=== PATIENT | female | born 1975 | race Caucasian/White ===

== ENCOUNTER 2024-04-23 09:49 | Inpatient (IN) ==
--- NOTE | 2024-04-23 10:28 | Emergency Department Note ---
History of Present Illness General Chief complaint: Cough Stated complaint: COUGH, PNEUMONIA, WORSENING SYMPTOMS Time Seen by Provider: 04/23/24 10:16 History of Present Illness Maximum Pain Intensity: 10 This is a 48-year-old female who presents to the emergency department via private vehicle with complaints of "cough, pneumonia, left leg swelling, vomiting". Patient notes she was here 2 days ago and diagnosed with pneumonia. She was prescribed azithromycin and oral Augmentin. 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 She notes since discharge she has been vomiting, feeling unwell and now progressively experiencing swelling to the left lower extremity. She also note some chest pain today as well. Cough continues and is rather nonproductive in nature. No hemoptysis. Patient does have history she notes of heart failure. Per review of the EMR patient did have a negative bio fire panel performed 2 days ago on the . Laboratory studies reviewed from that day as well. D- dimer was elevated prompting a CT of the chest at that time which was negative for PE however pneumonia was noted. Patient is unable to tolerate oral antibiotics noting that she continues to vomit. Home Medications Medication Instructions Recorded Confirmed Type albuterol sulfate 90 mcg/actuation 2 inh inhalation Q6H PRN SHORT OF 01/22/22 04/23/24 History aerosol inhaler BREATH carvedilol 6.25 mg tablet 6.25 mg PO BID 01/22/22 04/23/24 History montelukast 10 mg tablet 10 mg PO HS 01/22/22 04/23/24 History ezetimibe 10 mg tablet 10 mg PO DAILY 12/15/23 04/23/24 History furosemide 20 mg tablet 20 mg PO DAILY 12/15/23 04/23/24 History losartan 25 mg tablet 25 mg PO DAILY 12/15/23 04/23/24 History magnesium oxide 500 mg PO DAILY 12/15/23 04/23/24 History rosuvastatin 10 mg tablet 10 mg PO DAILY 12/15/23 04/23/24 History amoxicillin 875 mg-potassium 1 tab PO BID 04/23/24 04/23/24 History clavulanate 125 mg tablet Allergies Allergy/AdvReac Type Severity Reaction Status Date / Time No Known Allergies Allergy Verified 12/15/23 16:05 Past Med/Surg History Problem List (Updated 04/23/24 @ 18:45 by Oswald Spaulding PA-C) Emesis (Acute) Edema of left lower extremity (Acute) Heart failure Lingular pneumonia (Acute) Cough (Acute) Medical History Dyslipidemia Mild persistent asthma Mitral regurgitation Peripartum cardiomyopathy Hypertension Abnormal mammogram of left breast NO BIOPSY PER FATHER Surgical History H/O colonoscopy History of bilateral tubal ligation Family History (Updated 04/23/24 @ 12:02 by Felicia Riley PA-C) Other Heart disease No family history of adverse response to anesthesia Social History Smoking Status: Never smoker Second Hand Exposure: No; Do You Dip or Chew Tobacco: No; Tobacco Cessation Education Requested by Patient: No Hx Alcohol Use: No Hx Substance Use: No Preferred Language: [place] Rn Iv Therapy Required: No Beliefs That Will Affect Care: Sikh Current Living Situation: Parent Other Information That Helps Us Care for You: No Feels Safe at Home: Yes Safety Concerns: Feels Safe At This Time Assistive Devices: None Review of Systems A total of 10 systems reviewed and were otherwise negative Physical Exam Vital Signs Vital Signs - 24 hr 04/23/24 10:06 04/23/24 10:40 Temperature 36.5 C Temperature Source Temporal Artery Scan Pulse Rate 99 H 93 H Pulse Rhythm Regular Respiratory Rate 20 24 Respiratory Effort / Characteristics Non-Labored Spontaneous Respiratory Depth Normal Respiratory Pattern Regular Blood Pressure 144/83 H Blood Pressure Mean 103 Pulse Oximetry 98 100 Oxygen Delivery Method Room Air Room Air Sepsis Recent Fever Within 48 Hours No Sepsis New/Unexplained Change in Mental Status N/A Sepsis Action Taken by Nursing No Action Required VITAL SIGNS - Vital signs and nursing notes were reviewed. Stable and afebrile. GENERAL - 48-year-old female appearing her stated age who is in no acute distress. Communicates well with provider and answers questions appropriately. SKIN - Without rashes. No meningeal or petechial rash HEAD - NC/AT. EYES - PERRL with EOMI bilaterally. Sclera anicteric. EARS - No deformities of external structures noted on gross examination bilaterally. NOSE - Midline and without cyanosis. No epistaxis or purulent drainage noted. MOUTH/OROPHARYNX - Without perioral cyanosis. NECK - Neck with FROM. No nuchal rigidity. LUNGS - Chest wall symmetric without accessory muscle use, intercostals retractions, or central cyanosis. Normal vesicular breath sounds CTA B/L. No wheezes, rales, or rhonchi appreciated. CARDIAC - RRR ABDOMEN - Abdominal contour normal without pulsations or visible masses. BS normoactive all four quadrants. No tenderness, palpable masses, hepatosplenomegaly, or ascites noted. EXTREMITIES - No clubbing or peripheral cyanosis. LLE edema noted circumferentially. Lower extremities are appropriately warm and well-perfused. +5/5 strength noted in UE/LE bilaterally. NEUROLOGIC - Cranial nerves II through XII grossly intact. PSYCH -alert, oriented and pleasant on exam Course Administered Medications Discontinued Medications Furosemide (Furosemide 40 Mg/4 Ml Vial) 40 mg IV ONE ONE Stop: 04/23/24 13:08 Last Admin: 04/23/24 13:13 Dose: 40 mg Documented By: HB Ceftriaxone Sodium (Rocephin) 2,000 mg in 50 mls @ 100 mls/hr IV NOW STA Stop: 04/23/24 11:56 Last Infusion: 04/23/24 12:10 Dose: Infused Documented By: Admin: 04/23/24 11:39 Dose: 100 mls/hr Documented By: HB Azithromycin 500 mg/ Sodium (Chloride) 255 mls @ 127.5 mls/hr IV NOW ONE Stop: 04/23/24 14:44 Last Infusion: 04/23/24 15:16 Dose: Infused Documented By: Admin: 04/23/24 13:15 Dose: 127.5 mls/hr Documented By: MYLA Medical Decision Making Laboratory Data 04/23/24 10:35 04/23/24 10:35 Lab Results 04/23/24 04/23/24 Range/Units 10:35 11:40 WBC 6.70 (4.8-10.8) K/ul RBC 4.01 L (4.20-5.40) M/uL Hgb 11.9 L (12.0-16.0) g/dl Hct 37.0 (37.0-47.0) % MCV 92.3 (80.0-100.0) fL MCH 29.7 (25.0-34.0) pg MCHC 32.2 (32.0-36.0) g/dL RDW Std Deviation 48.3 H (36.4-46.3) fL RDW Coeff of Homero 14.2 (11.5-14.5) % Plt Count 214 (130-400) K/uL MPV 10.3 (9.4-12.4) fL Immature Gran % (Auto) 0.3 % Neut % (Auto) 84.5 % Lymph % (Auto) 7.2 % Rice % (Auto) 5.2 % Eos % (Auto) 2.7 % Baso % (Auto) 0.1 % Neut # (Auto) 5.66 (1.40-6.50) K/uL Lymph # (Auto) 0.48 L (1.20-3.40) K/uL Rice # (Auto) 0.35 (0.11-0.59) K/uL Eos # (Auto) 0.18 (0.00-0.50) K/uL Baso # (Auto) 0.01 (0.00-0.20) K/uL Immature Gran # (Auto) 0.02 (0.01-0.20) K/uL PT Cancelled 10.6 INR Cancelled 1.0 APTT Cancelled 32 H PTT Ratio Cancelled 1.2 Sodium 138 (136-145) mmol/L Potassium 4.0 (3.5-5.1) mmol/L Chloride 106 (98-107) mmol/L Carbon Dioxide 26 (21-32) mmol/L Anion Gap 6 (3-11) BUN 13 (6-23) mg/dl Creatinine 0.68 (0.6-1.2) mg/dl Est Cr Clr Drug Dosing 112.7 ml/min eGFR 107.36 BUN/Creatinine Ratio 19.1 (10-20) Glucose 100 H (70-99(Fasting)) mg/dl Lactate 0.7 (0.4-2.0) mmol/L Calcium 8.9 (8.6-10.3) mg/dl Magnesium 1.7 (1.7-2.4) mg/dl Total Bilirubin 0.4 (0.2-1.0) mg/dl AST 20 (13-39) U/L ALT 11 (7-52) U/L Alkaline Phosphatase 62 (34-104) U/L Troponin I High Sens 5.8 (0-14) pg/ml B-Natriuretic Peptide 43 (0-100) pg/ml Total Protein 7.2 (6.0-8.3) gm/dl Albumin 4.4 (3.4-5.0) gm/dl Globulin 2.8 (2.5-4.0) gm/dl Albumin/Globulin Ratio 1.6 (0.9-2) Lipase 26 (11-82) U/L Procalcitonin 0.08 (0-0.5) ng/ml HCG, Qual Negative (Negative) Imaging Data Radiologist's Impression: Chest X-Ray 04/23/24 10:24 XR chest 1V portable CLINICAL HISTORY: cough, recent pneumonia diagnosis, vomiting COMPARISON STUDY: Chest radiograph and chest CT April 21, 2024. FINDINGS: No pneumothorax or pleural effusion is present. Low lung volumes are unchanged. Mild left lingular opacity has mildly increased. Cardiomediastinal silhouette is stable. There is no evidence for pulmonary edema. IMPRESSION: Mild increase in lingular opacity consistent with pneumonia. ACT 112: Negative or not required by law. Electronically signed by: Jaylen Root M.D. 04/23/2024 10:58 AM Venous Doppler Study 04/23/24 10:25 BILATERAL LOWER EXTREMITY VENOUS DOPPLER HISTORY: Acute pain and swelling of the lower legs L leg edema, more than R COMPARISON STUDY: None. FINDINGS: There is normal compressibility, flow, and augmentation within the bilateral lower extremity deep venous systems. 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 IMPRESSION: No DVT within the right or left lower extremity. ACT 112: Negative or not required by law. Electronically signed by: Kristian Cordova M.D. 04/23/2024 11:35 AM MDM Narrative Patient was seen and evaluated as above in room B11. Review was performed of nursing notes and vital signs. I did review pertinent previous visits and patient history. After obtaining a thorough history and physical examination the above work up was performed. Patient presents to us today with persistent vomiting and worsening of symptoms status post discharged 2 days ago with diagnosis of pneumonia. She notes she has not been able to successfully take the oral antibiotics as she notes continued vomiting. She states this developed after she was discharged 2 days ago. Review of visit from that day did reveal a CTA that revealed pneumonia. 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 She also notes now progressive swelling to the left lower extremity. EKG reveals normal sinus rhythm at a rate of 87 bpm. QTc 433. QRS 84. No ST elevation on this rhythm tracing. Chest x-ray was obtained and per my interpretation does reveal mild increase in the lingular opacity consistent with pneumonia. Doppler study negative for DVT. Noting the patient's worsening symptoms despite outpatient antibiotics and now with vomiting we will proceed with further evaluation and management in the inpatient setting. Case discussed with the hospitalist service. Labs reveal no leukocytosis. Minor anemia noted with hemoglobin of 11.9. No emergent metabolic disturbance. No hyperglycemia. Troponin and BNP within normal range. Lipase and procalcitonin are within normal range. hCG negative. Urinalysis does not suggest infection. Please refer to further documentation regarding her stay. GCS: 15 In the evaluation and treatment of this patient the following differential diagnoses were entertained: Worsening pneumonia, pleural effusion, heart failure, DE, PE, among others Impression & Plan Cough, Lingular pneumonia, Edema of left lower extremity, Emesis Discharge Plan Visit Data Chief Complaint: Cough Stated Complaint: COUGH, PNEUMONIA, WORSENING SYMPTOMS ED Provider: Jose Chávez ED Midlevel Provider: Oswald Spaulding Discharge Problem: Cough, Lingular pneumonia, Edema of left lower extremity, Emesis Patient Disposition: Admitted As Inpatient Condition: Good Discharge Instructions Interventions: ED Discharge Assessment Last Done: 04/23/24 14:28
--- NOTE | 2024-04-23 11:00 | XRay Report ---
XR chest 1V portable CLINICAL HISTORY: cough, recent pneumonia diagnosis, vomiting COMPARISON STUDY: Chest radiograph and chest CT April 21, 2024. FINDINGS: No pneumothorax or pleural effusion is present. Low lung volumes are unchanged. Mild left l ingular opacity has mildly increased. Cardiomediastinal silhouette is stable. There is no evidence fo r pulmonary edema. IMPRESSION: Mild increase in lingular opacity consistent with pneumonia. ACT 112: Negative or not required by law. Electronically signed by: Jaylen Root M.D. 04/23/2024 10:58 AM
[2024-04-23 11:03] LABS: Basophils # (auto) 0.01 K/uL (0.00-0.20); Basophils % (auto) 0.1 %; Eosinophils # (auto) 0.18 K/uL (0.00-0.50); Eosinophils % (auto) 2.7 %; Hemoglobin 11.9 g/dl (12.0-16.0); Immature Granulocytes # (auto) 0.02 K/uL (0.01-0.20); Immature Granulocytes % (auto) 0.3 %; Lymphocytes # (auto) 0.48 K/uL (1.20-3.40); Lymphocytes % (auto) 7.2 %; Mean Corpuscular Hemoglobin 29.7 pg (25.0-34.0); Mean Corpuscular Hgb Conc 32.2 g/dL (32.0-36.0); Mean Corpuscular Volume 92.3 fL (80.0-100.0); Mean Platelet Volume 10.3 fL (9.4-12.4); Monocytes # (auto) 0.35 K/uL (0.11-0.59); Monocytes % (auto) 5.2 %; Neutrophils # (auto) 5.66 K/uL (1.40-6.50); Neutrophils % (auto) 84.5 %; Platelet Count 214 K/uL (130-400); RDW Coefficient of Variation 14.2 % (11.5-14.5); RDW Standard Deviation 48.3 fL (36.4-46.3); Red Blood Count 4.01 M/uL (4.20-5.40)
[2024-04-23 11:15] LABS: Pregnancy Test, Serum Negative (Negative)
[2024-04-23 11:19] LABS: Albumin Globulin Ratio 1.6 (0.9-2); Albumin Level 4.4 gm/dl (3.4-5.0); BUN Creatinine Ratio 19.1 (10-20); Bilirubin,Total 0.4 mg/dl (0.2-1.0); Calcium 8.9 mg/dl (8.6-10.3); Creatinine Clr Calc Pharmacy 112.7 ml/min; Globulin 2.8 gm/dl (2.5-4.0); Magnesium 1.7 mg/dl (1.7-2.4); Total Protein 7.2 gm/dl (6.0-8.3)
[2024-04-23 11:25] LABS: Troponin I High Sensitivity 5.8 pg/ml (0-14)
--- NOTE | 2024-04-23 11:36 | Ultrasound Report ---
BILATERAL LOWER EXTREMITY VENOUS DOPPLER HISTORY: Acute pain and swelling of the lower legs L leg edema, more than R COMPARISON STUDY: None. FINDINGS: There is normal compressibility, flow, and augmentation within the bilateral lower extremit y deep venous systems. 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 IMPRESSION: No DVT within the right or left lower extremity. ACT 112: Negative or not required by law. Electronically signed by: Kristian Cordova M.D. 04/23/2024 11:35 AM
[2024-04-23] MEDS: cefTRIAXone SODIUM 2,000 MG/50 ML BAG IV STA (11:39)
--- NOTE | 2024-04-23 12:06 | History & Physical Report ---
Date of Service April 23, 2024 Assessment & Plan (1) Lingular pneumonia: Plan: This is a 48 y/o female with history of peripartum cardiomyopathy, HTN, dyslipidemia, and asthma who presents to the ED today with worsening cough and vomiting. Diagnosed in the ED with pneumonia two days ago but has been unable to tolerate the Augmentin due to vomiting and has not started the azithromycin. She feels like her cough is now worsening and she is unable to tolerate any oral intake so she came back to the ED for evaluation and was referred for admission for IV antibiotics. She was also noted to have LE edema and has a history of peripartum cardiomyopathy but most recent ECHO with normal EF. - Admit to med telemetry - IV azithromycin and ceftriaxone for antibiotic coverage - Incentive spirometry, flutter valve - Labs in the AM - CBC, BMP (2) Heart failure: Plan: Increased peripheral edema on exam, reports worsening LUCAS IV furosemide 40 mg x 1 today then daily Update ECHO - will consider cardio consult pending results and response to diuresis (3) Hypertension: Plan: Chronic, stable Continue outpatient meds (4) Dyslipidemia: Plan: Chronic, stable Continue statin (5) Mild persistent asthma: Plan: Chronic, stable Continue inhalers Plan Pt seen and reviewed with collaborating physician, Dr. Babb. Plan of care discussed and as outlined above. Code status: Full code DVT prophylaxis: Lovenox Admit to med telemetry Rick Riley PA-C History of Present Illness Chief Complaint: worsening cough Primary Care Provider: Chuyita Ware MD This is a 48 y/o female with history of peripartum cardiomyopathy, HTN, dyslipidemia, and asthma who presents to the ED today with worsening cough and vomiting. Pt was seen in the ED two days ago and diagnosed with lingular pneumonia. Discharged on Augmentin and azithromycin but reports she has only been taking the Augmentin, has not picked up with azithromycin yet as the pharmacy stated that they never received a script for it. She started with a non-productive cough ten days ago, which has persisted and now seems to be worsening. History of asthma but this has been well-controlled for the last four years. Reports taking her maintenance inhaler, using albuterol prn. Since being discharged from the ED, she has been unable to tolerate oral intake specifically her antibiotic. Yesterday morning, she reportedly developed vomiting, diarrhea, and abdominal pain, which she attributes to possible food poisoning. Reports at least ten episodes of vomiting today. No blood in the vomit. Ongoing diarrhea today but no blood. She also c/o central burning chest pain that may or may not be associated with the cough. Unclear how long this has been occurring. She also notes ongoing issues with LE edema that preceded the cough - thinks started about three weeks ago but worse over the last few days. Having dyspnea both at rest and with exertion for the last several days - seems to be associated with the cough. She is prescribed furosemide 20 mg daily and states she's taking this as prescribed. Her father provided parts of the history today. ECHO 05/29 - EF 55% Allergies Allergy/AdvReac Type Severity Reaction Status Date / Time No Known Allergies Allergy Verified 12/15/23 16:05 Home Medications Medication Instructions Recorded Confirmed Type albuterol sulfate 90 mcg/actuation 2 inh inhalation Q6H PRN SHORT OF 01/22/22 04/23/24 History aerosol inhaler BREATH carvedilol 6.25 mg tablet 6.25 mg PO BID 01/22/22 04/23/24 History montelukast 10 mg tablet 10 mg PO HS 01/22/22 04/23/24 History ezetimibe 10 mg tablet 10 mg PO DAILY 12/15/23 04/23/24 History furosemide 20 mg tablet 20 mg PO DAILY 12/15/23 04/23/24 History losartan 25 mg tablet 25 mg PO DAILY 12/15/23 04/23/24 History magnesium oxide 500 mg PO DAILY 12/15/23 04/23/24 History rosuvastatin 10 mg tablet 10 mg PO DAILY 12/15/23 04/23/24 History amoxicillin 875 mg-potassium 1 tab PO BID 04/23/24 04/23/24 History clavulanate 125 mg tablet Past Med/Surg History Problem List (Updated 04/23/24 @ 13:24 by Felicia Riley PA-C) Heart failure Lingular pneumonia (Acute) Cough (Acute) Medical History Dyslipidemia Mild persistent asthma Mitral regurgitation Peripartum cardiomyopathy Hypertension Abnormal mammogram of left breast NO BIOPSY PER FATHER Surgical History H/O colonoscopy History of bilateral tubal ligation Family History (Updated 04/23/24 @ 12:02 by Felicia Riley PA-C) Other Heart disease No family history of adverse response to anesthesia Social History Smoking Status: Never smoker Second Hand Exposure: No; Do You Dip or Chew Tobacco: No; Tobacco Cessation Education Requested by Patient: No Hx Alcohol Use: No Hx Substance Use: No Preferred Language: Polish Fisheries Inspector Required: No Beliefs That Will Affect Care: Pentecostalism Current Living Situation: Parent Other Information That Helps Us Care for You: No Feels Safe at Home: Yes Safety Concerns: Feels Safe At This Time Assistive Devices: None Review of Systems Review of Systems: All systems reviewed & are unremarkable except as noted in Subjective Physical Exam Physical Exam: Please see physician note for details of the physical exam. Results & Data Results & Data Vital Signs (Past 12 Hours) Vital Signs Temp Pulse Resp BP Pulse Ox O2 Del Method 04/23/24 10:40 93 H 24 100 Room Air 04/23/24 10:06 36.5 C 99 H 20 144/83 H 98 Room Air Laboratory Results Lab Results 04/23/24 Range/Units 10:35 WBC 6.70 (4.8-10.8) K/ul RBC 4.01 L (4.20-5.40) M/uL Hgb 11.9 L (12.0-16.0) g/dl Hct 37.0 (37.0-47.0) % MCV 92.3 (80.0-100.0) fL MCH 29.7 (25.0-34.0) pg MCHC 32.2 (32.0-36.0) g/dL RDW Std Deviation 48.3 H (36.4-46.3) fL RDW Coeff of Homero 14.2 (11.5-14.5) % Plt Count 214 (130-400) K/uL MPV 10.3 (9.4-12.4) fL Immature Gran % (Auto) 0.3 % Neut % (Auto) 84.5 % Lymph % (Auto) 7.2 % Rains % (Auto) 5.2 % Eos % (Auto) 2.7 % Baso % (Auto) 0.1 % Neut # (Auto) 5.66 (1.40-6.50) K/uL Lymph # (Auto) 0.48 L (1.20-3.40) K/uL Rains # (Auto) 0.35 (0.11-0.59) K/uL Eos # (Auto) 0.18 (0.00-0.50) K/uL Baso # (Auto) 0.01 (0.00-0.20) K/uL Immature Gran # (Auto) 0.02 (0.01-0.20) K/uL PT Cancelled INR Cancelled APTT Cancelled PTT Ratio Cancelled Sodium 138 (136-145) mmol/L Potassium 4.0 (3.5-5.1) mmol/L Chloride 106 (98-107) mmol/L Carbon Dioxide 26 (21-32) mmol/L Anion Gap 6 (3-11) BUN 13 (6-23) mg/dl Creatinine 0.68 (0.6-1.2) mg/dl Est Cr Clr Drug Dosing 112.7 ml/min eGFR 107.36 BUN/Creatinine Ratio 19.1 (10-20) Glucose 100 H (70-99(Fasting)) mg/dl Lactate 0.7 (0.4-2.0) mmol/L Calcium 8.9 (8.6-10.3) mg/dl Magnesium 1.7 (1.7-2.4) mg/dl Total Bilirubin 0.4 (0.2-1.0) mg/dl AST 20 (13-39) U/L ALT 11 (7-52) U/L Alkaline Phosphatase 62 (34-104) U/L Troponin I High Sens 5.8 (0-14) pg/ml B-Natriuretic Peptide 43 (0-100) pg/ml Total Protein 7.2 (6.0-8.3) gm/dl Albumin 4.4 (3.4-5.0) gm/dl Globulin 2.8 (2.5-4.0) gm/dl Albumin/Globulin Ratio 1.6 (0.9-2) Lipase 26 (11-82) U/L Procalcitonin 0.08 (0-0.5) ng/ml HCG, Qual Negative (Negative) Diagnostic Findings Chest X-Ray 04/23/24 10:24 XR chest 1V portable CLINICAL HISTORY: cough, recent pneumonia diagnosis, vomiting COMPARISON STUDY: Chest radiograph and chest CT April 21, 2024. FINDINGS: No pneumothorax or pleural effusion is present. Low lung volumes are unchanged. Mild left lingular opacity has mildly increased. Cardiomediastinal silhouette is stable. There is no evidence for pulmonary edema. IMPRESSION: Mild increase in lingular opacity consistent with pneumonia. ACT 112: Negative or not required by law. Electronically signed by: Jaylen Root M.D. 04/23/2024 10:58 AM Venous Doppler Study 04/23/24 10:25 BILATERAL LOWER EXTREMITY VENOUS DOPPLER HISTORY: Acute pain and swelling of the lower legs L leg edema, more than R COMPARISON STUDY: None. FINDINGS: There is normal compressibility, flow, and augmentation within the bilateral lower extremity deep venous systems. 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 IMPRESSION: No DVT within the right or left lower extremity. ACT 112: Negative or not required by law. Electronically signed by: Kristian Cordova M.D. 04/23/2024 11:35 AM Medications Administered Discontinued Medications Ceftriaxone Sodium (Rocephin) 2,000 mg in 50 mls @ 100 mls/hr IV NOW STA Stop: 04/23/24 11:56 Last Admin: 04/23/24 11:39 Dose: 100 mls/hr Documented By: Supervising Physician Co-Signing Physician Notes Patient seen and examined Reports dry cough for 10 days, Lower extremity swelling for over 3 weeks. Also reports worsening SOB Was seen in ER 2 days ago and prescribed Augmentin and zithromax but only got the Augmentin Reports intractable nausea, vomiting, diarrhea, epigastric pain with vomiting since General: Obese, not in distress Eyes: PERRL, conjunctivae normal, not pale, anicteric sclerae, EOM intact bilaterally ENMT: External ear and nose normal, oropharynx normal Respiratory: Normal respiratory effort, no respiratory distress, diminished breath sounds Cardiovascular: RRR S1 S2 Gastrointestinal (Abdomen): Abdomen is not distended, soft, non-tender to palpation, no guarding, no palpable hepatosplenomegaly, normal bowel sounds Musculoskeletal: +mild pedal edema Neurologic: Alert and oriented x 3, No focal weakness, sensation grossly intact Psychiatric: Euthymic affect Lab is unremarkable CXR shows pneumonia LE doppler negative for DVT Since patient did not tolerate po abx at home, will do IV ceftriaxone and azithromycin Continue IV lasix while inpatient Get TTE I spent a total of 45 minutes coordinating, documenting and providing care for this patient excluding time spent in performance of separately billed services (2) Heart failure Heart failure chronicity: unspecified Heart failure type: unspecified Qualified Code(s): I50.9 - Heart failure, unspecified (3) Hypertension Hypertension type: primary hypertension Qualified Code(s): I10 - Essential (primary) hypertension (5) Mild persistent asthma Asthma complication type: unspecified Qualified Code(s): J45.30 - Mild persistent asthma, uncomplicated
[2024-04-23] MEDS ORDERED: AZITHROMYCIN 500 MG VIAL IV ONE (12:29)
[2024-04-23 12:34] LABS: Partial Thromboplastin Ratio 1.2; Partial Thromboplastin Time 32 Seconds (21-31); Prothrombin Time 10.6 Seconds (9.0-12.0)
[2024-04-23] MEDS: FUROSEMIDE 40 MG/4 ML VIAL IV ONE (13:13)
[2024-04-23] MEDS: AZITHROMYCIN 500 MG in SODIUM CHLORIDE 0.9% 250 ML IV ONE (13:15)
[2024-04-23] MEDS ORDERED: ACETAMINOPHEN 325 MG TAB PO PRN (14:48)
[2024-04-23 17:52] LABS: Appearance Urine Clear (Clear); Bacteria Urine Automated None Seen (None Seen); Bilirubin Urine Negative (Negative); Blood Urine Trace (Negative); Cast Urine Automated 0-2 /lpf (0-2); Color Urine Yellow; Epithelial Cell Urine Auto 0-2 /hpf (0-2); Glucose Urine UA Negative (Negative); Ketones Urine Negative (Negative); Leukocyte Esterase Urine Negative (Negative); Nitrite Urine Negative (Negative); Protein Urine Negative (Negative); RBC Urine Automated 0-2 /hpf (0-2); Specific Gravity Urine 1.009 (1.000-1.030); Urobilinogen Urine Negative (Negative); WBC Urine Automated 0-5 /hpf (0-5)
[2024-04-23] MEDS ORDERED: ALBUTEROL HFA 8 GM INHALER INH PRN (20:17)
--- NOTE | 2024-04-23 20:41 | Electrocardiogram Report ---
Test Reason : Blood Pressure : */* mmHG Vent. Rate : 87 BPM Atrial Rate : 87 BPM P-R Int : 132 ms QRS Dur : 84 ms QT Int : 360 ms P-R-T Axes : 46 4 34 degrees QTcB Int : 433 ms Normal sinus rhythm Normal ECG When compared with ECG of 21-Apr-2024 15:56, No significant change was found Confirmed by Dk Paul ([id number]) on 04/23/2024 8:41:23 PM Referred By: REFERRED SELF Confirmed By: Dk Paul
[2024-04-23] MEDS: carvediloL 6.25 MG TAB PO SCH (20:52)
[2024-04-23] MEDS: MONTELUKAST SODIUM 10 MG TABLET PO SCH (20:52)
[2024-04-24] MEDS: BENZONATATE 100 MG CAPSULE PO PRN (00:07)
[2024-04-24 04:43] LABS: Eosinophils # (auto) 0.05 K/uL (0.00-0.50); Eosinophils % (auto) 1.3 %; Hematocrit (blood only) 34.3 % (37.0-47.0); Immature Granulocytes # (auto) 0.01 K/uL (0.01-0.20); Immature Granulocytes % (auto) 0.3 %; Lymphocytes # (auto) 0.76 K/uL (1.20-3.40); Lymphocytes % (auto) 19.9 %; Mean Corpuscular Hemoglobin 29.5 pg (25.0-34.0); Mean Corpuscular Hgb Conc 32.1 g/dL (32.0-36.0); Mean Platelet Volume 10.1 fL (9.4-12.4); Monocytes # (auto) 0.42 K/uL (0.11-0.59); Neutrophils # (auto) 2.57 K/uL (1.40-6.50); Neutrophils % (auto) 67.5 %; Platelet Count 189 K/uL (130-400); RDW Coefficient of Variation 14.4 % (11.5-14.5); RDW Standard Deviation 48.5 fL (36.4-46.3); Red Blood Count 3.73 M/uL (4.20-5.40); White Blood Count 3.81 K/ul (4.8-10.8)
[2024-04-24 05:10] LABS: BUN Creatinine Ratio 12.7 (10-20); Calcium 8.4 mg/dl (8.6-10.3); Creatinine Clr Calc Pharmacy 102.3 ml/min; Magnesium 1.6 mg/dl (1.7-2.4); Potassium 3.4 mmol/L (3.5-5.1)
[2024-04-24] MEDS: ENOXAPARIN INJ 40 MG/0.4 ML SYR SQ SCH (08:15)
[2024-04-24] MEDS: LOSARTAN POTASSIUM 25 MG TAB PO SCH (08:16)
[2024-04-24] MEDS: ROSUVASTATIN CALCIUM 10 MG TAB PO SCH (08:16)
[2024-04-24] MEDS: MAGNESIUM OXIDE 400 MG TAB PO SCH (08:16)
[2024-04-24] MEDS: EZETIMIBE 10 MG TAB PO SCH (08:16)
[2024-04-24] MEDS: FUROSEMIDE 20 MG TAB PO SCH (08:17)
[2024-04-24] MEDS: FUROSEMIDE 40 MG/4 ML VIAL IV SCH (08:21)
--- NOTE | 2024-04-24 08:45 | Hospitalist Progress Note ---
Date of Service April 24, 2024 Assessment & Plan (1) Lingular pneumonia: Plan: This is most likely atypical pneumonia considering initial GI presentation, patient was given ceftriaxone and azithromycin, considering absence of fever, hypoxia or significant consolidation, her young age also into consideration, I would transition to oral Zithromax today and observe over the next 24 hours to see if patient can be possibly discharged home to finish the treatment at home. (2) Hypertension: Plan: Blood pressure stable, continue with carvedilol, losartan. (3) Dyslipidemia: Plan: Continue with Zetia and Crestor. (4) Mild persistent asthma: Plan: Continue with home dose of Singulair and use nebulizer treatment as needed. Plan Observe for another day for tolerance of p.o. antibiotic, if she remains stable over the next 24 hours may consider discharging her home to finish the course of azithromycin at home. Her echocardiogram showed normal ejection fraction and so I am not concerned. Admission and Anticipated Discharge Date Admission Date: April 23, 2024 Subjective Patient is a 48-year-old female with history of peripartum cardiomyopathy, hypertension, dyslipidemia and asthma who was admitted because of worsening cough despite taking oral medications and antibiotic as outpatient. She does not remember the name of antibiotic that she was on however the H&P mentioned Augmentin. Here patient was not found to be hypoxic, no leukocytosis, afebrile, chest x-ray was reviewed by myself and the report was reviewed which showed lingular pneumonia. Patient was kept on Zithromax, overall I think this is probably an atypical pneumonia considering the predominance of presenting GI symptoms. Her nausea and vomiting has resolved.Patient was seen and Patient was seen and examined, clinically stable, lung examination is unremarkable, she is not in any distress and is on room air, will transition to p.o. azithromycin, watch for another day and may consider discharging her home tomorrow. In the meanwhile echocardiogram was done here which showed normal ejection fraction. Continue with home medications. Physical Exam Physical Exam: VITALS: Reviewed. WEIGHT/BMI reviewed. GEN: Healthy appearing, well-developed, NAD. CV: RRR, no m/r/g. LUNGS: CTAB, no w/r/c. ABD: Soft, NT/ND, NBS, no masses or organomegaly. Results & Data Results & Data Vital Signs (Past 12 Hours) Vital Signs Temp Pulse Pulse Resp BP BP Pulse Ox 04/24/24 08:10 04/24/24 08:02 36.4 C L 79 18 137/83 96 04/24/24 03:42 36.8 C 78 18 127/72 95 04/23/24 23:48 36.8 C 91 H 18 144/78 H 98 04/23/24 21:49 95 H O2 Del Method 04/24/24 08:10 Room Air 04/24/24 08:02 Room Air 04/24/24 03:42 Room Air 04/23/24 23:48 Room Air 04/23/24 21:49 Laboratory Results Laboratory Results - last 24 hr 04/23/24 04/23/24 04/23/24 10:35 11:40 17:35 WBC 6.70 RBC 4.01 L Hgb 11.9 L Hct 37.0 MCV 92.3 MCH 29.7 MCHC 32.2 RDW Std Deviation 48.3 H RDW Coeff of Homero 14.2 Plt Count 214 MPV 10.3 Immature Gran % (Auto) 0.3 Neut % (Auto) 84.5 Lymph % (Auto) 7.2 [place] % (Auto) 5.2 Eos % (Auto) 2.7 Baso % (Auto) 0.1 Neut # (Auto) 5.66 Lymph # (Auto) 0.48 L [place] # (Auto) 0.35 Eos # (Auto) 0.18 Baso # (Auto) 0.01 Immature Gran # (Auto) 0.02 PT Cancelled 10.6 INR Cancelled 1.0 APTT Cancelled 32 H PTT Ratio Cancelled 1.2 Sodium 138 Potassium 4.0 Chloride 106 Carbon Dioxide 26 Anion Gap 6 BUN 13 Creatinine 0.68 Est Cr Clr Drug Dosing 112.7 eGFR 107.36 BUN/Creatinine Ratio 19.1 Glucose 100 H Lactate 0.7 Calcium 8.9 Magnesium 1.7 Total Bilirubin 0.4 AST 20 ALT 11 Alkaline Phosphatase 62 Troponin I High Sens 5.8 B-Natriuretic Peptide 43 Total Protein 7.2 Albumin 4.4 Globulin 2.8 Albumin/Globulin Ratio 1.6 Lipase 26 Procalcitonin 0.08 HCG, Qual Negative Urine Color Yellow Urine Appearance Clear Urine pH 5.0 Ur Specific [place] 1.009 Urine Protein Negative Urine Glucose (UA) Negative Urine Ketones Negative Urine Blood Trace H Urine Nitrite Negative Urine Bilirubin Negative Urine Urobilinogen Negative Ur Leukocyte Esterase Negative Urine WBC (Auto) 0-5 Urine RBC (Auto) 0-2 U Hyaline Cast (Auto) 0-2 U Epithel Cells (Auto) 0-2 Urine Bacteria (Auto) None Seen 04/24/24 04:03 WBC 3.81 L RBC 3.73 L Hgb 11.0 L Hct 34.3 L MCV 92.0 MCH 29.5 MCHC 32.1 RDW Std Deviation 48.5 H RDW Coeff of Homero 14.4 Plt Count 189 MPV 10.1 Immature Gran % (Auto) 0.3 Neut % (Auto) 67.5 Lymph % (Auto) 19.9 [place] % (Auto) 11.0 Eos % (Auto) 1.3 Baso % (Auto) 0.0 Neut # (Auto) 2.57 Lymph # (Auto) 0.76 L [place] # (Auto) 0.42 Eos # (Auto) 0.05 Baso # (Auto) 0.00 Immature Gran # (Auto) 0.01 PT INR APTT PTT Ratio Sodium 138 Potassium 3.4 L Chloride 103 Carbon Dioxide 26 Anion Gap 9 BUN 9 Creatinine 0.71 Est Cr Clr Drug Dosing 102.3 eGFR 104.82 BUN/Creatinine Ratio 12.7 Glucose 96 Lactate Calcium 8.4 L Magnesium 1.6 L Total Bilirubin AST ALT Alkaline Phosphatase Troponin I High Sens B-Natriuretic Peptide Total Protein Albumin Globulin Albumin/Globulin Ratio Lipase Procalcitonin HCG, Qual Urine Color Urine Appearance Urine pH Ur Specific [place] Urine Protein Urine Glucose (UA) Urine Ketones Urine Blood Urine Nitrite Urine Bilirubin Urine Urobilinogen Ur Leukocyte Esterase Urine WBC (Auto) Urine RBC (Auto) U Hyaline Cast (Auto) U Epithel Cells (Auto) Urine Bacteria (Auto) Diagnostic Findings Chest X-Ray 04/23/24 10:24 XR chest 1V portable CLINICAL HISTORY: cough, recent pneumonia diagnosis, vomiting COMPARISON STUDY: Chest radiograph and chest CT April 21, 2024. FINDINGS: No pneumothorax or pleural effusion is present. Low lung volumes are unchanged. Mild left lingular opacity has mildly increased. Cardiomediastinal silhouette is stable. There is no evidence for pulmonary edema. IMPRESSION: Mild increase in lingular opacity consistent with pneumonia. ACT 112: Negative or not required by law. Electronically signed by: Jaylen Root M.D. 04/23/2024 10:58 AM Venous Doppler Study 04/23/24 10:25 BILATERAL LOWER EXTREMITY VENOUS DOPPLER HISTORY: Acute pain and swelling of the lower legs L leg edema, more than R COMPARISON STUDY: None. FINDINGS: There is normal compressibility, flow, and augmentation within the bilateral lower extremity deep venous systems. 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 IMPRESSION: No DVT within the right or left lower extremity. ACT 112: Negative or not required by law. Electronically signed by: Kristian Cordova M.D. 04/23/2024 11:35 AM Medications Administered Current Inpatient Medications Acetaminophen (Acetaminophen 325 Mg Tab) 650 mg PO Q4H PRN PRN Reason: Pain or Fever Stop: 05/23/24 14:47 Albuterol (Albuterol Hfa 8 Gm Inhaler) 2 puffs INH Q6H PRN PRN Reason: SHORT OF BREATH Stop: 05/23/24 20:16 Azithromycin (Azithromycin 250 Mg Tab) 500 mg PO QAM ON LICENSE OF [facility] Stop: 04/29/24 08:59 Benzonatate (Benzonatate 100 Mg Capsule) 100 mg PO TID PRN PRN Reason: Cough Stop: 05/23/24 23:50 Last Admin: 04/24/24 00:07 Dose: 100 mg Carvedilol (Carvedilol 6.25 Mg Tab) 6.25 mg PO BID MATEO Stop: 05/23/24 20:59 Last Admin: 04/24/24 08:16 Dose: 6.25 mg Ezetimibe (Ezetimibe 10 Mg Tab) 10 mg PO DAILY ON LICENSE OF [facility] Stop: 05/24/24 08:59 Last Admin: 04/24/24 08:16 Dose: 10 mg Enoxaparin Sodium (Enoxaparin Inj 40 Mg/0.4 Ml Syr) 40 mg SQ QAM ON LICENSE OF [facility] Stop: 05/24/24 08:59 Last Admin: 04/24/24 08:21 Dose: Not Given Furosemide (Furosemide 40 Mg/4 Ml Vial) 40 mg IV DAILY MATEO Stop: 05/24/24 08:59 Last Admin: 04/24/24 08:21 Dose: 40 mg Furosemide (Furosemide 20 Mg Tab) 20 mg PO DAILY MATEO Stop: 05/24/24 08:59 Last Admin: 04/24/24 08:17 Dose: 20 mg Losartan Potassium (Losartan Potassium 25 Mg Tab) 25 mg PO DAILY ON LICENSE OF [facility] Stop: 05/24/24 08:59 Last Admin: 04/24/24 08:16 Dose: 25 mg Magnesium Oxide (Magnesium Oxide 400 Mg Tab) 400 mg PO DAILY MATEO Stop: 05/24/24 08:59 Last Admin: 04/24/24 08:16 Dose: 400 mg Montelukast Sodium (Montelukast Sodium 10 Mg Tablet) 10 mg PO HS ON LICENSE OF [facility] Stop: 05/23/24 20:59 Last Admin: 04/23/24 20:52 Dose: 10 mg Rosuvastatin Calcium (Rosuvastatin Calcium 10 Mg Tab) 10 mg PO DAILY ON LICENSE OF [facility] Stop: 05/24/24 08:59 Last Admin: 04/24/24 08:16 Dose: 10 mg (2) Hypertension Hypertension type: primary hypertension Qualified Code(s): I10 - Essential (primary) hypertension (4) Mild persistent asthma Asthma complication type: unspecified Qualified Code(s): J45.30 - Mild persistent asthma, uncomplicated
[2024-04-24] MEDS ORDERED: AZITHROMYCIN 500 MG VIAL IV SCH (09:00)
[2024-04-24] MEDS: AZITHROMYCIN 250 MG TAB PO SCH (10:09)
[2024-04-24] MEDS ORDERED: AZITHROMYCIN 500 MG in SODIUM CHLORIDE 0.9% 250 ML IV SCH (12:00)
[2024-04-24] MEDS ORDERED: cefTRIAXone SODIUM 2,000 MG/50 ML BAG IV SCH (12:00)
[2024-04-24] MEDS: PNEUMOCOCCAL VACCINE (PCV20) 20-VAL CONJ-DIP CRM/PF 0.5 ML SYR IM ONE (16:58)
--- NOTE | 2024-04-24 21:32 | Electrocardiogram Report ---
Test Reason : Blood Pressure : */* mmHG Vent. Rate : 96 BPM Atrial Rate : 96 BPM P-R Int : 132 ms QRS Dur : 86 ms QT Int : 362 ms P-R-T Axes : * 158 140 degrees QTcB Int : 457 ms Normal sinus rhythm Right axis deviation Limb lead reversal Abnormal ECG When compared with ECG of 23-Apr-2024 10:30, QRS axis Shifted right Limb lead reversal is now present Confirmed by Dk Paul ([id number]) on 04/24/2024 9:32:13 PM Referred By: REFERRED SELF Confirmed By: Dk Paul
[2024-04-25 07:44] VITALS: RESP 16; TEMP 98.4; O2SAT 94
--- NOTE | 2024-04-25 09:02 | Discharge Summary ---
Discharge Summary Date of Service April 25, 2024 Principal Dx & Hospital Course #1 = Principal Diagnosis (1) Lingular pneumonia: (2) Hypertension: (3) Dyslipidemia: (4) Mild persistent asthma: Continue with home dose of Singulair and use nebulizer treatment as needed. Notes For Next Care Provider Medication Changes From Visit Azithromycin 500 mg daily for 5 days K. Dur 40 mEq daily for 7 days Magnesium oxide 400 mg daily for 7 days Tessalon 100 mg twice daily for 7 days Admission HPI Per Admitting Provider Patient is a 48-year-old female with history of peripartum cardiomyopathy, hypertension, dyslipidemia and asthma who was admitted because of worsening cough despite taking oral medications and antibiotic as outpatient. She does not remember the name of antibiotic that she was on however the H&P mentioned Augmentin. Here patient was not found to be hypoxic, no leukocytosis, afebrile, chest x-ray was reviewed by myself and the report was reviewed which showed lingular pneumonia. Patient was kept on Zithromax, overall I think this is probably an atypical pneumonia considering the predominance of presenting GI symptoms. Her nausea and vomiting has resolved.he responded to treatment, seen and examined today on the day that we were thinking that she might be able to go home, she is overall doing well, denies having any nausea vomiting or cough. 5 more days of Zithromax will be given and noticed that patient had some low magnesium and potassium so I decided to give her a course of 7-day supplement of potassium chloride and magnesium oxide. Discharge Exam VITALS: Reviewed. WEIGHT/BMI reviewed. GEN: Healthy appearing, well-developed, NAD. CV: RRR, no m/r/g. LUNGS: CTAB, no w/r/c. ABD: Soft, NT/ND, NBS, no masses or organomegaly. Updated Medication List Medication Instructions Recorded Confirmed Type albuterol sulfate 90 mcg/actuation 2 inh inhalation Q6H PRN SHORT OF 01/22/22 04/23/24 History aerosol inhaler BREATH carvedilol 6.25 mg tablet 6.25 mg PO BID 01/22/22 04/23/24 History montelukast 10 mg tablet 10 mg PO HS 01/22/22 04/23/24 History ezetimibe 10 mg tablet 10 mg PO DAILY 12/15/23 04/23/24 History furosemide 20 mg tablet 20 mg PO DAILY 12/15/23 04/23/24 History losartan 25 mg tablet 25 mg PO DAILY 12/15/23 04/23/24 History magnesium oxide 500 mg PO DAILY 12/15/23 04/23/24 History rosuvastatin 10 mg tablet 10 mg PO DAILY 12/15/23 04/23/24 History azithromycin 250 mg tablet 500 mg (2 x 250 mg) PO QAM 5 days 04/25/24 Rx #10 tabs benzonatate 100 mg capsule 100 mg PO TID PRN cough 7 days #20 04/25/24 Rx caps magnesium oxide 400 mg PO DAILY #10 caps 04/25/24 Rx potassium chloride 20 mEq oral 40 meq PO DAILY 7 days #30 ea 04/25/24 Rx packet Hospital Stay Data Consultations 04/23/24 11:50 ED Decision to Admit Stat Diagnostic Imagining Performed 04/23/24 10:25 US venous doppler LE BI Stat Pending Results Patient Have Any Pending Studies at Discharge: No Discharge Instructions Given to Patient (Per Discharging Provider) No further recommendation Total Time Total Time Spent Total Time Spent (In Minutes): Less than 30 minutes
[2024-04-25 11:25] VITALS: BP 128/81; PULSE 102
== END 2024-04-25 14:36 | disposition home or self-care (01) | DRG 194 ==
LOC: ED 09:49 → SUATTDRO 12:34 → EDINP 12:34 → 2N 14:30